=== PATIENT | female | born 1940 | race Caucasian/White ===

== ENCOUNTER 2018-09-12 11:38 | Outpatient (REF) | payer MEDICARE, SELFPAY ==
[2018-09-12 21:28] LABS: HCT 45.3 % (36.0-46.0); HGB 14.7 g/dL (12.0-15.5); Mean Corp. HGB Concentration 32.5 g/dL (32.0-36.0); Mean Corpuscular Hemoglobin 31.5 pg (27.0-33.0); Mean Platelet Volume 10.3 fL (8.0-11.0); Platelet Count 365 x1000/uL (130-400); RBC 4.67 m/cumm (4.00-5.20); RBC Distribution Width 13.4 % (11.7-14.6); White Blood Cell Count 8.12 k/cumm (4.4-10.8)
[2018-09-12 21:41] LABS: ALT 20 U/L (12-78); AST 18 U/L (15-37); Albumin 3.8 g/dL (3.4-5.0); Alkaline Phosphatase 68 U/L (46-116); Anion Gap 8.3 mmol/L (3-11); BUN 16 mg/dL (7-18); Bilirubin, Total 1.5 mg/dL (0.2-1.0); CO2 29.7 mmol/L (21.0-32.0); CREATININE 1.02 mg/dL (0.55-1.02); Calcium 9.3 mg/dL (8.5-10.1); Chloride 102 mmol/L (98-107); Cholesterol 207 mg/dL (50-200); Estimated GFR 52.41 (mL/min/1.73m2); Glucose 99 mg/dL (70-100); HDL Cholesterol 57 mg/dL (40-60); LDL CHOLESTEROL 132 mg/dL (<100); Potassium 4.5 mmol/L (3.5-5.1); Sodium 140 mmol/L (136-145); Total Protein 7.6 g/dL (6.4-8.2); Triglyceride 111 mg/dL (30-150)
== END 2018-09-12 11:58 ==
LOC: NCHCN 11:38
PROVIDERS: PCP Family Medicine; Visit Provider Family Medicine
DX: R10.11 Right upper quadrant pain (principal); E78.5 Hyperlipidemia, unspecified; E03.9 Hypothyroidism, unspecified
CPT/HCPCS: 80053; 80061; 83721; 85027

== ENCOUNTER 2019-02-07 20:47 | Outpatient (REF) | payer MEDICARE, SELFPAY | END 2019-02-07 21:07 | LOC: NCHCN 20:47 | PROVIDERS: PCP Family Medicine; Visit Provider Physician Assistant Medical | DX: R10.31 Right lower quadrant pain (principal) | CPT/HCPCS: 87086 ==

== ENCOUNTER 2019-08-17 14:16 | Outpatient (REF) | payer MEDICARE, SELFPAY ==
[2019-08-17 19:28] LABS: ESR 11 mm/hr (0-30)
== END 2019-08-17 14:36 ==
LOC: NCHCN 14:16
PROVIDERS: PCP Family Medicine; Visit Provider Family Medicine
DX: M25.519 Pain in unspecified shoulder (principal)
CPT/HCPCS: 85652

== ENCOUNTER 2020-07-22 16:25 | Outpatient (REF) | payer MEDICARE, SELFPAY ==
[2020-07-22 16:49] LABS: Bilirubin Negative (Negative); Blood Trace-lysed (Negative); Clarity Clear (Clear); Glucose Negative (Negative); Ketones Negative (Negative); Leukocyte Esterase Small (Negative); Nitrite Negative (Negative); Urobilinogen 0.2 EU/dL (Up TO 0.2); pH 5.5 (5-8)
[2020-07-22 17:20] LABS: RBC 0-2 HPF (0-2); WBC Negative HPF (0-5)
[2020-07-22 17:21] LABS: Bacteria Negative HPF (Negative); C & S Indicated? Yes; Casts Negative LPF (Negative); Crystals Negative HPF (Negative); Epithelial Cells Few HPF (Negative); Mucus Negative (Negative)
== END 2020-07-22 16:26 | disposition home or self-care (01) ==
LOC: NCHCN 16:25
PROVIDERS: PCP Family Medicine; Visit Provider Family Medicine
DX: R10.31 Right lower quadrant pain (principal)
CPT/HCPCS: 81003; 81015; 87086

== ENCOUNTER 2021-03-25 16:18 | Outpatient (REF) | payer MEDICARE, SELFPAY ==
[2021-03-27 17:34] LABS: COVID-19 RT-PCR UVMMC Result Positive (Negative)
== END 2021-03-25 16:19 | disposition home or self-care (01) ==
LOC: NCHCN 16:18
PROVIDERS: PCP Family Medicine; Visit Provider Physician Assistant Medical
DX: Z20.822 Contact with and (suspected) exposure to COVID-19 (principal)
CPT/HCPCS: U0003

== ENCOUNTER 2021-04-01 01:49 | Outpatient (CLI) | payer MEDICARE, SELFPAY ==
[2021-04-01 08:40] VITALS: BP 135/73; PULSE 73; TEMP 36.6; O2SAT 94
[2021-04-01 08:55] VITALS: PULSE 76; RESP 18; TEMP 36.6; O2SAT 94
[2021-04-01 09:00] VITALS: BP 135/73; PULSE 76; TEMP 36.6; O2SAT 94
[2021-04-01 09:30] VITALS: BP 128/61; PULSE 69; TEMP 38.2; O2SAT 94
[2021-04-01 10:44] VITALS: BP 132/80; PULSE 55; TEMP 37.8; O2SAT 98
== END 2021-04-01 01:50 | disposition home or self-care (01) ==
LOC: INF 01:50
PROVIDERS: PCP Family Medicine; Visit Provider Family Medicine
DX: U07.1 COVID-19 (principal)
CPT/HCPCS: 96365

== ENCOUNTER 2021-04-06 10:21 | Emergency (ER) | payer MEDICARE, SELFPAY ==
[2021-04-06] VITALS (72 sets, daily range): BP systolic 119–163; BP diastolic 53–105; PULSE 68–92; RESP 11–28; TEMP 37; O2SAT 4–99
--- NOTE | 2021-04-06 10:15 | RT.EKG_ITS ---
APPROVED REPORT Exam: Resting ECG Reason for Exam: sob Patient Location: E HR:75 bpm ECG Measurements Heart Rate 75 AXIS VT 142 P 54 QRSd 76 QRS 12 QT 408 T 18 QTc 456 Conclusion Sinus rhythm...normal P axis, V-rate 60- 99 no STEMI, non-diagnostic EKG I have reviewed and interpreted ECG and agree with software generated interpretation.
--- NOTE | 2021-04-06 10:30 | ED.GENADUL_ITS ---
Discharge Plan Disposition Patient Disposition: AGAINST MEDICAL ADVICE Condition: Serious Discharge Details Clinical Impression: COVID-19, Hypoxia Primary Care Provider: Marah Castillo V ED Provider: Nette Christie Home Meds and New Rx's Prescriptions: No Action ibuprofen 200 MG capsule 200 mg PO Q6H PRN PRNRF: 0 Discharge Instructions Instructions: Using Oxygen at Home (ED), COVID-19 (Coronavirus Disease 2019) (ED) Additional Instructions: Use the albuterol inhaler 1 or 2 puffs every 4-6 hours as needed for shortness of breath and wheezing. At this time you have opted to leave the hospital AGAINST MEDICAL ADVICE. If you continue to worsen at home have fever, nausea vomiting diarrhea or any concerns please return to the emergency department immediately. Follow up with primary care provider in 2-3 days. Return to ED sooner if any worsening or concerns. Increase oral fluids. Please take a multivitamin including vitamin D3 and zinc and vitamin C. Please continue to quarantine until resolution of symptoms and or negative Covid test. Referrals: Marah Castillo MD [Primary Care Provider] - 3 days Discharge Data Discharge Date/Time-TO BE ENTERED AT DEPARTURE: 04/06/21 19:33 Medical Decision Making <CONNOR Patel - Last Filed: 04/07/21 22:45> Patient is a pleasant 81 year old female presenting today with c/c of SOB, hypoxia. States she developed COVID symptoms on the 8th and had positive test on the . Subsequently received the MAB infusion. States that she has been hypoxic in the mid to low 80s over the past 4 days. Her primary care provider was trying to arrange for home O2. However, complicating the delay in for unclear reasons. She states that this morning she became more symptomatic. She states that typically she is able to bring her oxygen up for deep breathing. However, this morning this is not successful. Prompted her to call EMS. She denies any chest pain. Has not noted any lower extremity swelling. Patient was given a duo nebulizer on the way here which provided some relief. At the time of arrival, patient was on on RV at 10 L a minute was able to be transitioned to 2 L nasal cannula. Oxygen currently in the mid to high 90s. On exam, patient appears nontoxic. With a 2 L O2, her heart rate and oxygen are normal, she is afebrile. She does have some crackles at the bases of both lungs. Normal cardiac exam. She is with her extremities. No lower extremity edema or calf tenderness. I did discuss with the patient that as her symptoms are worsening instead of improving it point in her course, I am concerned for potential complication including pneumonia or PE. Patient is adamantly refusing any chest x-ray, CT or labs at this time. She reports that she only here to be able to be sent home on oxygen. I did discuss the risks associated with this, including septicemia, increased hypoxia, cardiac strain, CVA, mortality. Patient has expressed his competency and is refusing any further medical management here I would only like to be able have the oxygen she has been advised to use at home. I will recheck to the primary care office in an effort to try and figure out where this is at. I am hoping that with the help with his primary care, he may also be able to get the patient to be more agreeable staying. I did try to address all of her concerns regarding potential barriers in regard to her obtaining care. Consulted with patients PCP. They confirm that she was soudning SOB, having cough and diminishing O2. They had been trying to set up home O2 but that b/c of her insurance, she needs qualifiers completed. The triage nurse will speak with provider operations section manager and call back. The patient's primary care provider who is speaking with the patient currently. She advised that they to have them try to get the patient to come to the ED for the work-up and consult has been here. Having difficulty getting home oxygen arranged as insurance is still requiring ambulatory testing despite her known COVID-19 diagnosis and hypoxia at rest. Primary care was elicited with the patient and patient is now agreeable to undergo work-up and evaluation here. Plan to evaluate for potential pneumonia as well as PE. As patient does have history of rash associated with iodinated contrast, I will follow the protocol for premedication prior to CTA for pulmonary embolism study. I discussed the risk/benefit as well as expected procedural steps associated with this preparation. She voiced understanding and wishes to proceed. Labs reviewed. No leukocytosis. Stable H&H. Lymphocytes are slightly low . Coags are normal. Potassium slightly low at 3.2, replenish this orally. No other significant abnormality on CMP. Troponin within normal limits. At the end of my shift, care transition to Helen Baron NP with imaging and disposition pending. Patient received Benadryl at 340, plan to undergo CTA in 1 hour from the time of administration. Will treat according to findings. Patient likely will want to leave AGAINST MEDICAL ADVICE. She is made it clear to me during multiple discussions that she is not interested in staying in the hospital. However, admission will likely be advised, particularly as she continues desaturate even further with simple activities such as going to the commode. <Nette Christie - Last Filed: 04/06/21 21:57> Care assumed from provider (CONNOR Arango) Please see their initial HPI, PE, and documentation. Discussed patient details and case and pending workup and disposition. Patient is hemodynamically stable, and alert and oriented. 173: Spoke with patient's daughter Radha and updated her on plan of care at this time we are waiting for CT result. Patient is returned from CT alert and oriented hemodynamically stable. Satting 93% on 4 L nasal cannula. V rad CT chest PE: FINDINGS: Pulmonary arteries: Normal. No pulmonary emboli. Aorta: Unremarkable. No aortic aneurysm. No aortic dissection. Lungs: Irregular areas of airspace consolidation are seen involving all 5 lobes of the lungs with patchy areas of more dense fibrosis and stranding within the right and left lower lobes. Centrilobular emphysematous changes of the lungs are present. Pleural spaces: Unremarkable. No pneumothorax. No pleural effusion. Heart: Unremarkable. No cardiomegaly. No pericardial effusion. Lymph nodes: Mediastinal adenopathy is present. Gallbladder and bile ducts: The gallbladder is surgically absent. Bones/joints: Chronic degenerative change of the spine are present. Soft tissues: Unremarkable. IMPRESSION: 1. No evidence of pulmonary embolism. 2. Irregular areas of ground-glass consolidation involving all 5 lobes of the lungs consistent with the clinical history of COVID-19. 3. Centrilobular emphysematous changes. 4. Mediastinal adenopathy. 5. Status post cholecystectomy. Thank you for allowing us to participate in the care of your patient. Dictated and Authenticated by: Robert Perry MD [id number]: Spoke with patient she is still adamant about wanting to leave AMA. I will attempt to call the [facility] emergency number to see if they are going to be breathing the oxygen here. Patient reports that she still wants to Leave AMA even if we are unable to get her oxygen at this time. 1800:Spoke with [employer] regarding setting up Home O2, they are to call back within 20 minutes. 1810: Spoke with Lora with [employer] who reports they will be in an hour for Oxygen delivery. 1922: [employer] labor representative here at bedside for delivery of oxygen, patient's boyfriend is on his way to pick him up and take him home. Oxygen will also be delivered to the patient's home. Patient is still adamant wanting to leave AGAINST MEDICAL ADVICE. Did encourage her to stay patient declines at this time. Patient requesting to leave AMA. The patient appears clinically sober and is not under the influence of any known substances. Discussed risks and benefits with patient. Patient verbalizes understanding of situation and the risks of leaving including worsening condition, developing disability, including but not limited to . Discussed results of labs and imaging, if they were performed and recommendations for further treatment and/or observation. The patient verbalizes understanding of the results discussed. I did discuss patient requesting to leave AGAINST MEDICAL ADVICE with patient daughter Radha she was not surprised by this information. At this time patient has opted to leave against medical advice. Patient is alert and oriented and has the capacity to make own decisions. This text was generated using [employer] system, please disregard any oddities of phrase or misspellings. HPI <CONNOR Patel - Last Filed: 04/07/21 22:45> General Mode of arrival: EMS . Date/Time Provider Initiated Documentation: 04/06/21 10:30 . Limitations to Documentation: no limitations . Information obtained by: patient, RN/MD (spoke with patients primary care office), RN notes reviewed and old records reviewed . History of Present Illness 81 year old F presents to the emergency department with the chief complaint of SOB, hypoxia, cough, known COVID+, described as moderate, with intensity rated at 1 (patient denies any pain). Quality is described as other (no discomfort), Patient started experiencing this week(s) and it has been constant. Immobilization improves symptom(s), Movement worsens symptoms . Patient notes cough, shortness of breath and weakness (generalized weakness and fatigue); denies chest pain, fever/chills, nausea/vomiting and rash. Patient did receive the following treatments prior to arrival, other (received outpatient MAB infusion) Related Data Home Medications Medication Instructions Recorded Confirmed ibuprofen 200 mg PO Q6H PRN PRN 07/20/12 04/06/21 Allergies Allergy/AdvReac Type Severity Reaction Status Date / Time formaldehyde Allergy Intermediate Wheezing Unverified 11/02/13 13:14 Iodinated Contrast Media Allergy Mild Skin Rash Unverified 11/02/13 13:14 [Iodinated Contrast Media - IV Dye] lactose Allergy Mild Diarrhea Unverified 11/02/13 13:14 monosodium glutamate AdvReac Intermediate Nausea Unverified 11/02/13 13:14 gabapentin AdvReac Mild Diarrhea Unverified 11/02/13 13:14 Sulfa (Sulfonamide AdvReac Mild Nausea Unverified 11/02/13 13:14 Antibiotics) sulfites AdvReac Intermediate Diarrhea Uncoded 11/02/13 13:14 General Stated Complaint: SOB DEANNA: 2 Review of Systems <CONNOR Patel - Last Filed: 04/07/21 22:45> Constitutional Constitutional: Reports as per HPI, Denies chills, Reports fatigue, Denies fever(s) and Reports lethargy Eyes Eyes: Denies change in vision ENT Ears, Nose, Mouth, and Throat: Denies dizziness Cardiovascular Cardiovascular: Reports as per HPI, Reports dyspnea and Reports dyspnea on exertion Respiratory Respiratory: Reports as per HPI, Reports chest congestion, Reports cough, Denies pain on inspiration, Denies pain with cough, Reports dyspnea, Reports dyspnea on exertion and Denies wheezing Gastrointestinal Gastrointestinal: Reports as per HPI, Denies abdominal pain, Denies diarrhea, Denies nausea and Denies vomiting Musculoskeletal Musculoskeletal: Reports as per HPI and Denies back pain Integumentary/Breasts Skin/Breast: Reports as per HPI and Denies rash Neurologic Neurologic: Reports as per HPI and Denies dizziness Endocrine Endocrine: Reports fatigue Allergic/Immunologic Allergic/Immunologic: Denies wheezing PFSH <CONNOR Patel - Last Filed: 04/07/21 22:45> Active Problem List Inguinal hernia (Active) COVID-19 (Acute) Hypoxia (Acute) Medical History Gastroesophageal reflux disease Hypothyroidism Mixed hyperlipidemia Palpitations Surgical History Bladder Surgery EGD - IV Sedation Hysterectomy, Laproscopic Ligation of fallopian tube Oophrectomy, Both Tonsillectomy and adenoidectomy Family History Mother Heart disease Father Heart disease Other Hypothyroidism Other No problems noted. Social History Smoking/Tobacco Use Status: Former Tobacco Use Smoking risk assessment performed?: Yes Drug use: Never Do you feel safe at home: Yes Do you feel safe in your relationship?: Yes Exam <CONNOR Patel - Last Filed: 04/07/21 22:45> Const General: cooperative, healthy appearing, comfortable, no acute distress and well developed Nutritional Appearance: average body habitus and well nourished Orientation: alert, awake and oriented x3 HENMT Head: normal to inspection Ears: hearing grossly normal bilaterally Mouth: moist mucous membranes Chest Chest: normal inspection of the chest, normal palpation of entire chest wall and no crepitus Resp Effort & Inspection: normal respiratory effort, able to speak in complete sentences and no respiratory distress Auscultation: crackles bilaterally at the base, no rales, no rhonchi and no wheezes Cardio Rate: regular rate Rhythm: regular rhythm Heart Sounds: S1 normal and S2 normal GI Inspection: normal to inspection, no edema and non-distended Palpation: soft, no hepatosplenomegaly, not firm, no guarding, not rigid and nontender Auscultation: normal bowel sounds Back/Spine/Pelvis Back: no CVA tenderness Thoracic/Lumbar Spine: thoracic and lumbar spine normal to inspection Skin General skin exam: no rashes or lesions noted Trauma: no lacerations or abrasions Neuro General: patient alert, patient awake and patient oriented x3 Cognition: normal cognition Speech: speech normal Extrem General: normal to inspection, capillary refill normal, no pedal edema and no calf tenderness Psych Appearance: grossly normal and well kempt Mental Status: mental status grossly normal Speech and Movement: speech and movement normal Course <CONNOR Patel - Last Filed: 04/07/21 22:45> Vital Signs Vital signs: Vital Signs Temperature 37 C 04/06/21 10:22 Pulse 78 04/06/21 10:22 Respiratory Rate 20 04/06/21 10:22 Blood Pressure 146/70 H 04/06/21 10:22 Pulse Oximetry 89 L 04/06/21 10:22 Temperature 37 C 04/06/21 10:22 Temperature Source Temporal Artery Scan 04/06/21 10:22 Pulse 78 04/06/21 10:22 Respiratory Rate 20 04/06/21 10:22 Blood Pressure 146/70 H 04/06/21 10:22 Blood Pressure Position Supine 04/06/21 10:22 Pulse Oximetry 94 04/06/21 10:29 Oxygen Delivery Method Nasal Cannula 04/06/21 10:29 Oxygen Flow Rate 2 04/06/21 10:29 Pain Level 0 04/06/21 10:22 Sign Out <CONNOR Patel - Last Filed: 04/07/21 22:45> Sign Out Data: Sign Out Comment: Care transitioned to Nette Christie NP with imaging pending. Patient receiving pre-treatment to prevent allergic reaction. History of rash after contrast dye historically. CT scheduled for 4:40PM. Paitent COVID+. Increased SOB and increased hyoxia. Concerned for pneumonia or PE. CTA pending. Last updated by Chelys Mcgarry PA at 04/06/21 15:45
[2021-04-06] MEDS: methylPREDNISolone SUCC 125 MG VIAL IVP (12:38)
[2021-04-06] MEDS: Normal Saline 500 ML IV (12:39)
[2021-04-06 12:40] LABS: Abs Immature Grans 0.06 10^3/uL (0.0-0.06); Absolute Basophil Count 0.01 10^3/uL (0.0-0.2); Absolute Eosinophil Count 0.01 10^3/uL (0.0-0.7); Absolute Lymphocyte Count 0.78 10^3/uL (1.2-3.4); Absolute Monocyte Count 1.07 10^3/uL (0.1-0.8); Absolute Neutrophil Count 4.81 10^3/uL (1.2-6.7); Basophils % 0.1; Eosinophils % 0.1; HCT 44.6 % (36.0-46.0); HGB 14.3 g/dL (11.2-15.7); Immature Grans % 0.9; Lymphocytes % 11.6; MCH 30.4 pg (27.0-33.0); MCHC 32.1 % (32.0-36.0); MCV 94.7 fL (80-95); MPV 9.7 fL (8.0-11.0); Monocytes % 15.9; Neutrophils % 71.4; Nucleated RBC 0 %; Platelet Count 365 10^3/uL (130-400); RBC 4.71 10^6/uL (3.93-5.22); RDW-SD 45.3 fL; WBC 6.74 10^3/uL (4.4-10.8)
[2021-04-06 12:55] LABS: ALT 18 U/L (14-59); AST 21 U/L (15-37); Albumin 3.1 g/dL (3.4-5.0); Alkaline Phosphatase 54 U/L (46-116); Anion Gap 11.1 mmol/L (3-11); BUN 16 mg/dL (7-18); Bilirubin, Total 1.7 mg/dL (0.2-1.0); CO2 30.9 mmol/L (21.0-32.0); Calcium 8.8 mg/dL (8.5-10.1); Chloride 100 mmol/L (98-107); Estimated GFR 53.21 (mL/min/1.73m2); Glucose 114 mg/dL (74-106); INR 1.1 (0.9-1.1); Magnesium 2.2 mg/dL (1.8-2.4); PTT Activated 23.3 sec (21.0-27.5); Potassium 3.2 mmol/L (3.5-5.1); Sodium 142 mmol/L (136-145); Total Protein 7.8 g/dL (6.4-8.2)
[2021-04-06 12:58] LABS: Troponin I < 0.05 ng/mL (<0.06)
[2021-04-06] MEDS: POTASSIUM CHLORIDE 20 MEQ, POTASSIUM CHLORIDE 10 MEQ 30 MEQ PO (13:59)
[2021-04-06 14:05] LABS: Troponin I < 0.05 ng/mL (<0.06)
[2021-04-06] MEDS: diphenhydrAMINE 50 MG/ML VIAL IVP (15:38)
[2021-04-06] MEDS: Normal Saline - Diluent 50 ML VIAL IV (17:10)
[2021-04-06] MEDS: Omnipaque 350 MG/ML 100 ML BTL IJ (17:11)
--- NOTE | 2021-04-06 17:12 | DI.CT_ITS ---
Exam(s) CT CHEST PE CTA EXAM: CT CHEST PE CTA CLINICAL HISTORY: increased SOB, hypoxia associated with COVID. TECHNIQUE: Imaging Protocol: Axial CT angiography was performed with multi-slice acquisition and mu lti-planar and/or 3D reconstructions. CONTRAST MATERIAL: Intravenous: Omnipaque 350 Contrast volume:structured data in ml COMPARISON: CT ABD PELVIS WO CONTRAST from 05/30/2013 FINDINGS: CT angiography of the chest was performed with intravenous infusion of 100 cc of Omnipaque 350. There are bilateral areas of ground-glass and consolidative opacity of pulmonary lobes. Findings are consistent with known COVID infection. There appear to be underlying central lobular pulmonary emph ysematous changes. No pleural effusion. Tracheobronchial tree appears intact. No evidence of pulmonary embolic disease. Thoracic aorta is of normal diameter, no thoracic aortic an eurysm or dissection, major branch vessels appear intact. No mediastinal or hilar adenopathy. Images obtained through the upper abdomen show unremarkable appearance of the visualized portions of the liver, spleen, pancreas, adrenals, and kidneys. Note is made of prior cholecystectomy. IMPRESSION: Bilateral pulmonary opacities consistent with infectious process, presumably COVID. No evidence of pu lmonary embolic disease. RADIATION DOSE DELIVERED: 412.17mGy.cm Total DLP 412.17mGy.cm Total DLP CTDIvol DATA REPOSITORY: All CT scans at this facility are submitted to the National Radiology Data Registry (NRDR) Dose Index Registry (DIR) with the [employer] (ACR). RADIATION OPTIMIZATION: All CT scans at this facility use at least one of these dose optimization te chniques: automated exposure control; mA and/or kV adjustment per patient size (includes targeted exa ms where dose is matched to clinical indication); or iterative reconstruction.
--- NOTE | 2021-04-06 17:36 | DI.VRAD_ITS ---
PROCEDURE INFORMATION: Exam: CTA Chest With Contrast Exam date and time: 04/06/2021 12:28 PM Age: 81 years old Clinical indication: Shortness of breath; Patient HX: Increased SOB, . hypoxia associated with covid. Covid pos 03/27/2021 TECHNIQUE: Imaging protocol: Computed tomographic angiography of the chest with contrast. 3D rendering (Not supervised by radiologist): MIP and/or 3D reconstructed images were created by the technologist. Radiation optimization: All CT scans at this facility use at least one of these dose optimization techniques: automated exposure control; mA and/or kV adjustment per patient size (includes targeted exams where dose is matched to clinical indication); or iterative reconstruction. Contrast material: OMNI 350; Contrast volume: 100 ml; Contrast route: INTRAVENOUS (IV); COMPARISON: No relevant prior studies available. FINDINGS: Pulmonary arteries: Normal. No pulmonary emboli. Aorta: Unremarkable. No aortic aneurysm. No aortic dissection. Lungs: Irregular areas of airspace consolidation are seen involving all 5 lobes of the lungs with patchy areas of more dense fibrosis and stranding within the right and left lower lobes. Centrilobular emphysematous changes of the lungs are present. Pleural spaces: Unremarkable. No pneumothorax. No pleural effusion. Heart: Unremarkable. No cardiomegaly. No pericardial effusion. Lymph nodes: Mediastinal adenopathy is present. Gallbladder and bile ducts: The gallbladder is surgically absent. Bones/joints: Chronic degenerative change of the spine are present. Soft tissues: Unremarkable. IMPRESSION: 1. No evidence of pulmonary embolism. 2. Irregular areas of ground-glass consolidation involving all 5 lobes of the lungs consistent with the clinical history of COVID-19. 3. Centrilobular emphysematous changes. 4. Mediastinal adenopathy. 5. Status post cholecystectomy. Dictated and Authenticated by: Robert Perry MD. Ordering:MERYL Valentino MD
== END 2021-04-06 19:33 | disposition left against medical advice (07) ==
PROVIDERS: Physician Assistant; Emergency Provider Registered Nurse Emergency; PCP Family Medicine
DX: U07.1 COVID-19 (principal); R09.02 Hypoxemia; R06.02 Shortness of breath; Z53.29 Procedure and treatment not carried out because of patient's decision for other reasons
CPT/HCPCS: 36415; 71275; 80053; 93005; 96361; 96374; 96375; 99285; 83735; 84484; 85025; 85379; 85610; 85730; 93010; J1200; J2930; J3490

== ENCOUNTER 2021-04-25 11:27 | Emergency (ER) | payer MEDICARE, SELFPAY ==
[2021-04-25 11:36] VITALS: BP 107/63; PULSE 70; RESP 18; TEMP 37.2; O2SAT 96
--- NOTE | 2021-04-25 12:22 | DI.US_ITS ---
Exam(s) US EXTREMITY VENOUS BI EXAM: US EXTREMITY VENOUS BI CLINICAL HISTORY: BILAT LEG swelling, no trauma, RECENT COVID. TECHNIQUE: Bilateral lower extremity venous ultrasound performed using grayscale, color-flow, and sp ectral Doppler analysis. COMPARISON: No exams were available for comparison FINDINGS: The left common femoral, femoral and popliteal veins demonstrate normal compressibility, augmentation , and color Doppler. The right common femoral and deep femoral vein are patent. There is thrombus ex tending from the proximal femoral vein through to the mid peroneal vein in the calf. The posterior t ibial veins are patent. The saphenofemoral junctions are unremarkable. There is no evidence of a Bake r's cyst. The soft tissues are unremarkable. IMPRESSION: Right: Right lower extremity deep venous thrombus extending from the proximal right femoral vein thro ugh to the peroneal vein. Left: Negative for DVT DATA REPOSITORY:
--- NOTE | 2021-04-25 12:35 | W.ED.GENAD ---
Discharge Plan Disposition Patient Disposition: HOME Condition: Stable Discharge Details Clinical Impression: DVT (deep venous thrombosis) Primary Care Provider: Marah Castillo V ED Provider: Colt Michaels Home Meds and New Rx's Prescriptions: New Eliquis DVT-PE Treat 30D Start 5 mg (74 tabs) tablets,dose pack 5 mg PO ONCE Qty: 74 RF: 0 Discontinued ibuprofen 200 MG capsule 400 mg PO Q6H PRN PRNRF: 0 Discharge Instructions Instructions: Apixaban (By mouth), Deep Vein Thrombosis (ED) Additional Instructions: Ultrasound reveals DVT. Eliquis as directed. Please watch for new or worsening symptoms such as chest pain, increasing shortness of breath, etc. and return immediately to the ER. As we discussed, you are at a higher risk for bleeding so if you happen to fall, are in a car accident, etc. you likely should receive medical attention. Otherwise I strongly recommend you contact your primary care provider on Tuesday to discuss your ER visit, symptoms, new prescription of Eliquis, and need for prompt outpatient reevaluation. Discharge Data Discharge Date/Time-TO BE ENTERED AT DEPARTURE: 04/25/21 15:08 Medical Decision Making This is an 81-year-old female presenting for right lower swelling, atraumatic, that she noticed this morning. She denies history of DVT or PE, she is not anticoagulated. She denies any chest pain or shortness of breath. Clinically certainly concerning for DVT. Will contact our ultrasound department to see if we can call a CAT scan to obtain emergent ultrasound. They will be coming in roughly 1 hour 30-minute. Ultrasound obtained and positive for DVT. Will obtain laboratory values and coags Discussed work-up with patient. She remained hemodynamically stable, continues to deny any chest pain or shortness of breath. We discussed options for anticoagulation, she would prefer an oral agent that is not Coumadin and would like to avoid any Lovenox if at all possible. Given this, will initiate Eliquis, first dose given here in the ER. We did discuss given her age, diagnosis of extensive DVT, and multiple comorbidities, the option of admitting to our facility; however, patient would prefer to be discharged. She is of sound mind and can certainly make her own decisions. I have placed her on the care management list to help expedite outpatient primary care follow-up. Patient states that she is scheduled later this month to be seen by her primary care provider. Strict discharge and return precautions provided given her diagnosis of DVT and the fact that she is now taking Eliquis. I was able to speak with her daughter on the phone who is currently in [place] regarding her work-up, evaluation, and disposition. This documentation was generated using [employer] system, please disregard any oddities of phrase or misspellings. Medical Records Medical records reviewed: Yes I reviewed the patient's medical records. Imaging Data Radiologic Study: Attestation: I personally reviewed and interpreted this imaging study as follows: Imaging: Ultrasound Radiologist's impression: PROCEDURE INFORMATION: Exam: US Duplex Lower Extremity Veins, Bilateral Exam date and time: 04/25/2021 1:14 PM Age: 81 years old Clinical indication: Swelling (edema) of limb; Lower extremity, bilateral TECHNIQUE: Imaging protocol: Real-time duplex ultrasound of the extremities with 2-D muñoz scale, color Doppler flow and spectral waveform analysis with image documentation. Complete exam focused on the bilateral lower extremity veins. COMPARISON: No relevant prior studies available. FINDINGS: Right deep veins: Deep vein thrombosis on the right in the proximal femoral vein through the mid peroneal vein in the calf. The common femoral vein and proximal deep femoral vein appear patent Right superficial veins: Saphenofemoral junction is patent without thrombus. Left deep veins: Unremarkable. The common femoral, femoral, proximal profunda femoral and popliteal veins are patent without thrombus. Normal Doppler waveforms. Normal compressibility and/or augmentation response. Left superficial veins: Saphenofemoral junction is patent without thrombus. Soft tissues: Unremarkable. IMPRESSION: Right lower extremity DVT from the proximal femoral vein through the peroneal vein in the calf. Lab Data Lab results reviewed: Yes I reviewed the patient's lab results. Labs: Laboratory Tests Range/Units 04/25/21 04/25/21 04/25/21 14:20 14:20 14:20 WBC (4.4-10.8) 10^3/uL 7.88 RBC (3.93-5.22) 10^6/uL 3.91 L Hgb (11.2-15.7) g/dL 12.2 Hct (36.0-46.0) % 38.8 MCV (80-95) fL 99.2 H MCH (27.0-33.0) pg 31.2 MCHC (32.0-36.0) % 31.4 L RDW (11.7-14.6) % 13.2 Plt Count (130-400) 10^3/uL 286 MPV (8.0-11.0) fL 8.9 Immature Gran % 0.6 Neutrophils % 69.9 Lymphocytes % 15.4 Monocytes % 10.9 Eosinophils % 2.7 Basophils % 0.5 Nucleated RBC % % 0 Absolute Neutrophils (1.2-6.7) 10^3/uL 5.51 Absolute Lymphocytes (1.2-3.4) 10^3/uL 1.21 Absolute Monocytes (0.1-0.8) 10^3/uL 0.86 H Absolute Eosinophils (0.0-0.7) 10^3/uL 0.21 Absolute Basophils (0.0-0.2) 10^3/uL 0.04 PT (9.3-11.0) sec 10.1 INR (0.9-1.1) 1.0 APTT (21.0-27.5) sec 26.1 Sodium (136-145) mmol/L 142 Potassium (3.5-5.1) mmol/L 4.4 Chloride (98-107) mmol/L 107 Carbon Dioxide (21.0-32.0) mmol/L 30.9 Anion Gap (3-11) mmol/L 4.1 BUN (7-18) mg/dL 11 Creatinine (0.55-1.02) mg/dL 0.9 Estimated GFR/1.73 m2 (mL/min/1.73m2) >= 60.00 Glucose (74-106) mg/dL 100 Calcium (8.5-10.1) mg/dL 8.5 Total Bilirubin (0.2-1.0) mg/dL 0.8 AST (15-37) U/L 12 L ALT (14-59) U/L 11 L Alkaline Phosphatase (46-116) U/L 52 Total Protein (6.4-8.2) g/dL 7.0 Albumin (3.4-5.0) g/dL 2.9 L HPI General Mode of arrival: EMS. Date/Time Provider Initiated Documentation: 04/25/21 11:46. Limitations to Documentation: no limitations. Information obtained by: patient and EMS. HPI Narrative: This is an 81-year-old female, past medical history of GERD, hypothyroidism, palpitations, diagnosed with Covid last month, has finished her quarantine state but has been on supplemental oxygen since her diagnosis, presents to the ER via EMS for right lower extremity swelling. Patient states that because of her Covid she has been sleeping in a recliner ever since. She awoke this morning with right lower extremity swelling. She denies history of DVT or PE. She denies any trauma, chest pain, worsening shortness of breath, erythema or warmth. She denies any discomfort to the right lower extremity. Patient contacted the urgent care who recommended an ultrasound to rule out DVT. She states that the roads were severe this morning so she contacted EMS for transport to the ER. Related Data Home Medications Medication Instructions Recorded Confirmed apixaban [Eliquis DVT-PE Treat 30D 5 mg PO ONCE #74 dose pk 04/25/21 Start] Previous Rx's Medication Instructions Recorded apixaban [Eliquis DVT-PE Treat 30D 5 mg PO ONCE #74 dose pk 04/25/21 Start] Allergies Allergy/AdvReac Type Severity Reaction Status Date / Time formaldehyde Allergy Intermediate Wheezing Unverified 04/25/21 11:48 Iodinated Contrast Media Allergy Mild Skin Rash Unverified 04/25/21 11:48 [Iodinated Contrast Media - IV Dye] lactose Allergy Mild Diarrhea Unverified 04/25/21 11:48 monosodium glutamate AdvReac Intermediate Nausea Unverified 04/25/21 11:48 gabapentin AdvReac Mild Diarrhea Unverified 04/25/21 11:48 Sulfa (Sulfonamide AdvReac Mild Nausea Unverified 04/25/21 11:48 Antibiotics) sulfites AdvReac Intermediate Diarrhea Uncoded 04/25/21 11:48 General Stated Complaint: Vascular DEANNA: 3 Review of Systems Constitutional Constitutional: Denies fever(s) Cardiovascular Cardiovascular: Denies chest pain and Denies dyspnea Respiratory Respiratory: Denies dyspnea Musculoskeletal Musculoskeletal: Denies arthralgias and Reports stiffness Integumentary/Breasts Skin/Breast: Denies erythema Hematologic/Lymphatic Hematologic/Lymphatic: Denies easy bleeding and Denies easy bruising PFSH All Active Problems (Updated 04/25/21 @ 14:30 by CONNOR Rao) Inguinal hernia (Active) COVID-19 (Acute) Hypoxia (Acute) DVT (deep venous thrombosis) (Chronic) Medical History Gastroesophageal reflux disease Hypothyroidism Mixed hyperlipidemia Palpitations Surgical History Bladder Surgery EGD - IV Sedation Hysterectomy, Laproscopic Ligation of fallopian tube Oophrectomy, Both Tonsillectomy and adenoidectomy Family History Mother Heart disease Father Heart disease Other Hypothyroidism Other No problems noted. Social History Smoking/Tobacco Use Status: Former Tobacco Use Smoking risk assessment performed?: Yes Drug use: Never Do you feel safe at home: Yes Do you feel safe in your relationship?: Yes Exam Const General: cooperative, healthy appearing, comfortable and no acute distress Orientation: alert and awake HENOH Head: normal to inspection, normocephalic and atraumatic Eyes General: appearance normal, both eyes and all related structures Conjunctivae: conjunctivae normal Neck Neck: normal visual inspection, trachea midline and supple Resp Effort & Inspection: normal respiratory effort and able to speak in complete sentences Auscultation: clear to auscultation bilaterally Cardio Rate: regular rate Rhythm: regular rhythm Skin General skin exam: no rashes or lesions noted Neuro General: patient alert, patient awake, moves all extremities and no focal motor deficits Cognition: normal cognition Speech: speech normal Gait: normal gait Motor: muscle tone normal throughout Sensory Exam: no sensory deficits noted Extrem General: full ROM, capillary refill normal, no calf tenderness and pedal edema on the right non-pitting and 2+ Other: Right lower extremity is certainly asymmetric when comparing to the left lower extremity. Diffuse mild edema, swelling, to the right calf. Skin is intact. There is no warmth, erythema, ecchymosis, tenderness. No palpable cord. Negative Homans' sign. Capillary refill equal both lower extremities, 2+ dorsalis pedal pulse bilateral lower extremities. Psych Appearance: grossly normal Mental Status: mental status grossly normal Course Vital Signs Vital signs: Vital Signs Temperature 37.2 C 04/25/21 11:36 Pulse 70 04/25/21 11:36 Respiratory Rate 18 04/25/21 11:36 Blood Pressure 107/63 04/25/21 11:36 Pulse Oximetry 96 04/25/21 11:36 Temperature 37.2 C 04/25/21 11:36 Temperature Source Temporal Artery Scan 04/25/21 11:36 Pulse 70 04/25/21 11:36 Respiratory Rate 18 04/25/21 11:36 Respiratory Effort Non-Labored 04/25/21 11:43 Blood Pressure 107/63 04/25/21 11:36 Blood Pressure Position Sitting 04/25/21 11:36 Pulse Oximetry 96 04/25/21 11:36 Oxygen Delivery Method Room Air 04/25/21 11:36 Oxygen Flow Rate 0 04/25/21 11:36 Pain Level 0 04/25/21 11:45
[2021-04-25 14:24] LABS: Abs Immature Grans 0.05 10^3/uL (0.0-0.06); Absolute Basophil Count 0.04 10^3/uL (0.0-0.2); Absolute Eosinophil Count 0.21 10^3/uL (0.0-0.7); Absolute Lymphocyte Count 1.21 10^3/uL (1.2-3.4); Absolute Monocyte Count 0.86 10^3/uL (0.1-0.8); Absolute Neutrophil Count 5.51 10^3/uL (1.2-6.7); Basophils % 0.5; Eosinophils % 2.7; HCT 38.8 % (36.0-46.0); HGB 12.2 g/dL (11.2-15.7); Immature Grans % 0.6; Lymphocytes % 15.4; MCH 31.2 pg (27.0-33.0); MCHC 31.4 % (32.0-36.0); MCV 99.2 fL (80-95); MPV 8.9 fL (8.0-11.0); Monocytes % 10.9; Neutrophils % 69.9; Nucleated RBC 0 %; Platelet Count 286 10^3/uL (130-400); RBC 3.91 10^6/uL (3.93-5.22); RDW 13.2 % (11.7-14.6); WBC 7.88 10^3/uL (4.4-10.8)
[2021-04-25 14:38] LABS: ALT 11 U/L (14-59); AST 12 U/L (15-37); Albumin 2.9 g/dL (3.4-5.0); Alkaline Phosphatase 52 U/L (46-116); Anion Gap 4.1 mmol/L (3-11); BUN 11 mg/dL (7-18); Bilirubin, Total 0.8 mg/dL (0.2-1.0); CO2 30.9 mmol/L (21.0-32.0); CREATININE 0.9 mg/dL (0.55-1.02); Calcium 8.5 mg/dL (8.5-10.1); Chloride 107 mmol/L (98-107); Glucose 100 mg/dL (74-106); PTT Activated 26.1 sec (21.0-27.5); Potassium 4.4 mmol/L (3.5-5.1); Prothrombin Time 10.1 sec (9.3-11.0); Sodium 142 mmol/L (136-145)
--- NOTE | 2021-04-25 14:56 | DI.VRAD_ITS ---
Addendum created by Susy Layton MD on 04/25/2021 2:58:38 PM EST: THIS REPORT CONTAINS FINDINGS THAT MAY BE CRITICAL TO PATIENT CARE. The findings were verbally communicated via telephone conference with Colt Michaels at 2:58 PM EST on 04/25/2021. The findings were acknowledged and understood. Initial report created on 04/25/2021 2:55:37 PM EST: PROCEDURE INFORMATION: Exam: US Duplex Lower Extremity Veins, Bilateral Exam date and time: 04/25/2021 1:14 PM Age: 81 years old Clinical indication: Swelling (edema) of limb; Lower extremity, bilateral TECHNIQUE: Imaging protocol: Real-time duplex ultrasound of the extremities with 2-D muñoz scale, color Doppler flow and spectral waveform analysis with image documentation. Complete exam focused on the bilateral lower extremity veins. COMPARISON: No relevant prior studies available. FINDINGS: Right deep veins: Deep vein thrombosis on the right in the proximal femoral vein through the mid peroneal vein in the calf. The common femoral vein and proximal deep femoral vein appear patent Right superficial veins: Saphenofemoral junction is patent without thrombus. Left deep veins: Unremarkable. The common femoral, femoral, proximal profunda femoral and popliteal veins are patent without thrombus. Normal Doppler waveforms. Normal compressibility and/or augmentation response. Left superficial veins: Saphenofemoral junction is patent without thrombus. Soft tissues: Unremarkable. IMPRESSION: Right lower extremity DVT from the proximal femoral vein through the peroneal vein in the calf. Dictated and Authenticated by: Susy Layton MD. Ordering:DENNY Gregory MD
[2021-04-25] MEDS: Apixaban 5 MG TAB 10 MG PO (15:03)
[2021-04-25 15:08] VITALS: BP 137/68; PULSE 73; TEMP 36.9; O2SAT 93
[2021-04-25 15:12] VITALS: BP 137/68; PULSE 73; RESP 18; TEMP 36.9; O2SAT 93
--- NOTE | 2021-04-26 08:24 | NUR.NOTE ---
Nursing Note: Referral faxed to [facility] for follow up in 1 week for DVT and started on Eliquis. Jessica France
== END 2021-04-25 15:08 | disposition home or self-care (01) ==
LOC: ER 14:48
PROVIDERS: Emergency Provider Physician Assistant; PCP Family Medicine
DX: I82.491 Acute embolism and thrombosis of other specified deep vein of right lower extremity (principal); Z86.16 Personal history of COVID-19
CPT/HCPCS: 36415; 80053; 99284; 85025; 85610; 85730; 93970

== ENCOUNTER 2021-07-01 12:28 | Outpatient (CLI) | payer MEDICARE, SELFPAY ==
--- NOTE | 2021-07-01 | DI.US_ITS ---
Exam(s) US LOWER EXTREMITY VENOUS RT EXAM: US LOWER EXTREMITY VENOUS RT CLINICAL HISTORY: LOCALIZED SWELLING RT LEG, R22.41, ? DVT TECHNIQUE: Right lower extremity venous ultrasound performed using grayscale, color-flow, and spectr al Doppler analysis. COMPARISON: No exams were available for comparison FINDINGS: The right common femoral, femoral and popliteal veins demonstrate normal compressibility, augmentatio n, and color Doppler. The posterior tibial veins are patent. The saphenofemoral junction is unremark able. There is no evidence of a Salazar cyst. The soft tissues are unremarkable. IMPRESSION: No DVT. DATA REPOSITORY:
== END 2021-07-01 12:48 ==
PROVIDERS: PCP Family Medicine; Visit Provider Family Medicine
DX: R22.41 Localized swelling, mass and lump, right lower limb (principal)
CPT/HCPCS: 93971

== ENCOUNTER 2021-09-07 13:23 | Outpatient (CLI) | payer MEDICARE, SELFPAY ==
--- NOTE | 2021-09-07 | DI.US_ITS ---
Exam(s) US LOWER EXTREMITY VENOUS RT EXAM: US LOWER EXTREMITY VENOUS RT CLINICAL HISTORY: LOCALIZED SWELLING ON LEG RT, R22.41 TECHNIQUE: Right lower extremity venous ultrasound performed using grayscale, color-flow, and spectr al Doppler analysis. COMPARISON: US US LOWER EXTREMITY VENOUS RT from 07/01/2021 FINDINGS: The right common femoral, femoral and popliteal veins demonstrate normal compressibility, augmentatio n, and color Doppler. The posterior tibial veins are patent. The saphenofemoral junction is unremark able. There is no evidence of a Salazar cyst. The soft tissues are unremarkable. IMPRESSION: No DVT. DATA REPOSITORY:
== END 2021-09-07 13:43 ==
LOC: DI 13:24
PROVIDERS: PCP Family Medicine; Visit Provider Nurse Practitioner Family
DX: R22.41 Localized swelling, mass and lump, right lower limb (principal)
CPT/HCPCS: 93971

== ENCOUNTER 2021-12-10 12:08 | Outpatient (REF) | payer MEDICARE, SELFPAY | END 2021-12-10 12:09 | disposition home or self-care (01) | LOC: NCHCN 12:08 | PROVIDERS: PCP Family Medicine; Visit Provider Family Medicine | DX: N39.41 Urge incontinence (principal) | CPT/HCPCS: 87086 ==

== ENCOUNTER 2022-10-04 14:03 | Outpatient (REF) | payer MEDICARE, SELFPAY | END 2022-10-04 14:04 | disposition home or self-care (01) | LOC: NCHCN 14:03 | PROVIDERS: PCP Family Medicine; Visit Provider Family Medicine | DX: R10.31 Right lower quadrant pain (principal) | CPT/HCPCS: 87086 ==

== ENCOUNTER 2022-11-10 12:56 | Outpatient (REF) | payer MEDICARE, SELFPAY ==
[2022-11-10 15:13] LABS: ESR 21 mm/hr (0-30)
[2022-11-10 15:23] LABS: C-Reactive Protein 0.07 mg/dL (0.0-0.3)
== END 2022-11-10 12:57 | disposition home or self-care (01) ==
LOC: NCHCN 12:56
PROVIDERS: PCP Family Medicine; Visit Provider Family Medicine
DX: R51.9 Headache, unspecified (principal)
CPT/HCPCS: 85652; 86140

== ENCOUNTER 2024-06-08 13:52 | Outpatient (REF) | payer MEDICARE, SELFPAY ==
[2024-06-08 15:45] LABS: ESR 10 mm/hr (0-30)
[2024-06-08 16:03] LABS: Anion Gap 1.4 mmol/L (3-11); BUN 18 mg/dL (7-18); CO2 33.6 mmol/L (21.0-32.0); Calcium 9.3 mg/dL (8.5-10.1); Chloride 106 mmol/L (98-107); Estimated GFR 55.55 (mL/min/1.73m2); Glucose 92 mg/dL (74-106); Magnesium 2.2 mg/dL (1.8-2.4); Potassium 4.8 mmol/L (3.5-5.1); Sodium 141 mmol/L (136-145); TSH (W/Ref FT4) 3.16 uIU/mL (0.36-3.74)
[2024-06-08 16:05] LABS: C-Reactive Protein < 0.50 mg/dL (<or=0.5)
== END 2024-06-08 13:53 | disposition home or self-care (01) ==
LOC: NCHCN 13:52
PROVIDERS: PCP Family Medicine; Visit Provider Family Medicine
DX: R42 Dizziness and giddiness (principal)
CPT/HCPCS: 80048; 85652; 83735; 84443; 86140

== ENCOUNTER 2024-12-27 10:27 | Outpatient (CLI) | payer MEDICARE, SELFPAY ==
--- NOTE | 2024-12-27 15:00 | DI.US_ITS ---
APPROVED REPORT EXAM: Comprehensive 2D, Doppler, and color-flow Echocardiogram Patient Location: Out-Patient [employer] Specialist: Shona Garcia RDCS (AE) Indications: SOB Other Information Study Quality: Adequate Conclusion Normal left ventricular wall thickness and chamber size. Ejection fraction is 60%. Wall motion is normal Normal right ventricular size and function Both atria are normal in size Mildly sclerotic aortic valve Mild mitral annular calcification Estimated right ventricular systolic pressure is 32 mmHg Wall motion Left Ventricle The left ventricle is normal size. The left ventricular systolic function is normal. The left ventricular ejection fraction is within the normal range. There is normal left ventricular wall thickness. There is normal LV segmental wall motion. There is no ventricular septal defect visualized. LVEF is 60%. Right Ventricle The right ventricle is normal size. The right ventricular systolic function is normal. Atria The left atrium size is normal. The right atrium size is normal. The interatrial septum is intact with no evidence for an atrial septal defect. Aortic Valve The Aortic valve is mildly sclerotic. Number of aortic valve leaflets could not be assessed. There is no aortic valvular stenosis. No aortic regurgitation is present. Mitral Valve Mild mitral annular calcification. No evidence of mitral valve stenosis. Trace mitral regurgitation. Tricuspid Valve The tricuspid valve is normal in structure. There is no tricuspid valve stenosis. Mild tricuspid regurgitation. The RVSP is 32.1 mmHg. Pulmonic Valve The pulmonary valve is normal in structure. There is no pulmonic valvular stenosis. Trace pulmonic regurgitation. Great Vessels The aortic root is normal in size. The ascending aorta is normal in size. Aortic arch is not well visualized. IVC is normal in size and collapses >50% with inspiration. Pericardium There is no pericardial effusion. 2D Dimensions IVSD d PLAX 0.90 cm F: 0.6-1.0 Ao Root d 2.77 cm F: 2.7 - 3.3 LVPW d PLAX 0.90 cm F: 0.6 - 1.0 Ao Asc Diam d 3.02 cm F: 2.3 - 3.1 LVID d PLAX 4.20 cm F: 3.8 - 5.2 LVDs 2.90 cm F: 2.2 - 3.5 LV EF Teichholz 59.9 % FS 31.59 % LV EDV (Teich) 78.4 mL LV ESV (Teich) 31.4 mL M-Mode TAPSE 2.67 cm (M/F) >1.7 Auto EF LV EDV A4C 91.0 mL LV EDV A2C 82.2 mL LV EDV BP 87.1 mL LV ESV A4C 37.4 mL LV ESV A2C 33.8 mL LV ESV BP 35.2 mL LVEF(%) A4C 58.9 % LVEF(%) A2C 58.8 % LVEF(%) BP 59.6 % LV SV A4C 53.6 ml LV SV A2C 48.4 ml LV SV BP 51.9 ml LV CO A4C 3.4 L/min LV CO A2C 2.9 L/min LV CO BP 3.2 L/min HR A4C 63.94 BPM HR A2C 60.31 BPM LV EDV Index (BP) LA Volume LA Length A4C 4.3 cm LA Length A2C 5.5 cm LA Area A4C s 12.59 cm2 LA Area A2C s 18.15 cm2 LA Vol A4C A-L 31.10 mL LA Vol A2C A-L 50.55 mL LA Vol Biplane A-L 44.8 mL LA Vol/BSA A4C A-L LA Vol/BSA A2C A-L LA Vol/BSA BP A-L 22.3 mL/m2 LA Vol A4C MOD 28.1 mL LA Vol A2C MOD 46.7 mL LA Vol BP MOD 40.7 mL RA Volume RA Area A4C 10.8 cm2 RA ESV A4C (A-L) 23.4mL RA Vol/BSA A4C A-L RA Length A4C 4.2 cm RA ESV A4C (MOD) 21.9mL LV Diastology MV E' medial 0.092 (>0.07 m/s) MV E Vmax 0.89 (0.4-1.3 m/s) MV E/E' MED 9.59 (<14) MV A Vmax 0.95 (0.4-1.3 m/s) MV E' lateral 0.092 (>0.1 m/s) E/A Ratio 0.9 MV E/E' LAT 9.61 (<14) MV E' Average 0.092 m/s MV E/E'(average) 9.60 Aortic Valve AoV Vmax 1.12 m/s LVOT Vmax 1.07 m/s AoV Peak Grad 5.1 mmHg LVOT Peak Grad 4.6 mmHg AoV Area (Vmax) 2.87 cm2 LVOT VTI 0.273 m AoV VTI 0.273 m LVOT Mean Grad 2.3 mmHg AoV Mean Teo. 0.81 m/s LVOT SV 82.46 mL AoV Mean Grad 3.0 mmHg LVOT Diam s 1.95 cm AoV Area (VTI) 3.01 cm2 AV Regurg Peak Gr. 5.05 mmHg Velocity Ratio 0.96 Mitral Valve MV DT 217 (160-240 msec) MV Vmax TIPS 1.02 m/s MV Mean Grad 1.7 (<2mmHg) MV VTI 0.367 m Pulmonary Valve PV Vmax 0.72 (0.5-1.5 m/s) RVOT Vmax 0.65 m/s PV Peak Grad 2.1 mmHg RVOT Peak Gr. 1.7 mmHg PV Mean Teo 0.52 m/s RVOT VTI 0.149 m PV Mean Grad 1.2 mmHg RVOT Mean Gr. 0.8 mmHg Tricuspid Valve RA Pressure 3.00 mmHg TR Vmax 2.70 m/s TV S' 0.15 m/s TR Peak Grad 29.0 mmHg RVSP (TR) 32.1 mmHg
== END 2024-12-27 10:47 ==
PROVIDERS: PCP Family Medicine; Visit Provider Family Medicine
DX: R06.02 Shortness of breath (principal)
CPT/HCPCS: 93306

== ENCOUNTER 2025-01-30 16:37 | Outpatient (REF) | payer MEDICARE, SELFPAY ==
[2025-01-30 17:40] LABS: HCT 44.9 % (36.0-46.0); HGB 14.2 g/dL (11.2-15.7); MCH 30.7 pg (27.0-33.0); MCHC 31.6 % (32.0-36.0); MCV 97 fL (80-95); MPV 11.3 fL (8.0-11.0); Platelet Count 295 10^3/uL (130-400); RBC 4.63 10^6/uL (3.93-5.22); RDW 13.5 % (11.7-14.6); RDW-SD 48.9 fL; WBC 7.79 10^3/uL (4.4-10.8)
[2025-01-30 17:58] LABS: INR 0.9 (0.9-1.1); Prothrombin Time 9.1 sec (9.1-11.1)
== END 2025-01-30 16:38 | disposition home or self-care (01) ==
LOC: NCHCN 16:37
PROVIDERS: PCP Family Medicine; Visit Provider Family Medicine
DX: R23.3 Spontaneous ecchymoses (principal)
CPT/HCPCS: 85027; 85610; 85730